=== PATIENT | male | born 1995 | race Caucasian/White ===

== ENCOUNTER 2016-08-29 13:47 | Emergency (ER) | payer OTHER ==
[2016-08-29] MEDS ORDERED: NO HOME MEDICATION (14:34)
== END 2016-08-29 15:50 ==
LOC: EDMED 13:47
DX: S29.012A Strain of muscle and tendon of back wall of thorax, initial encounter (principal); V49.40XA Driver injured in collision with unspecified motor vehicles in traffic accident, initial encounter